=== PATIENT | female | born 1945 | race Caucasian/White ===

== ENCOUNTER → 2024-02-13 08:19 | Outpatient (REF) | payer MEDICARE, OTHER, SELFPAY ==
[2024-02-13 09:00] LABS: % Basophils 1.2 % (0-2); % Eosinophils 4.1 % (0-6); % Immature Granulocytes 0.2 % (0-0.5); % Lymphocytes 31.2 % (20.5-51.1); % Monocytes 10.9 % (1.7-9.3); % Neutrophils 52.4 % (42.2-75.2); Absolute Basophils 0.1 10^3/uL (0-0.2); Absolute Eosinophils 0.2 10^3/uL (0-0.7); Absolute Lymphocytes 1.3 10^3/uL (1.2-3.4); Absolute Monocytes 0.5 10^3/uL (0.1-0.6); Absolute Neutrophils 2.2 10^3/uL (1.4-6.5); Hematocrit 42.3 % (37.0-47.0); Hemoglobin 14.5 g/dL (12.0-16.0); Mean Corp Hgb Conc. 34.3 g/dL (33.0-37.0); Mean Corpuscular Hgb 31.4 pg (27.0-31.0); Mean Corpuscular Volume 91.6 fL (81.0-99.0); Nucleated Red Blood Cells % 0 %; Platelet Count 263 10^3/uL (130-400); Red Blood Cell Count 4.62 10^6/uL (4.20-5.40); Red Cell Dist. Width 12.4 % (11.5-14.5); White Blood Cell Count 4.1 10^3/uL (4.8-10.8)
[2024-02-13 09:49] LABS: Vitamin D, 25-OH*** 72.6 ng/mL (30-80)
[2024-02-13 11:03] LABS: ALT (SGPT) 12 U/L (0-35); AST (SGOT) 38 U/L (14-36); Albumin 4.4 g/dl (3.5-5.0); Alkaline Phosphatase 65 U/L (38-126); Blood Urea Nitrogen 15 mg/dl (7-17); Calcium 9.7 mg/dl (8.4-10.2); Carbon Dioxide 23 mmol/L (22-30); Chloride 107 mmol/L (98-107); Glucose 127 mg/dl (70-99); HDL Cholesterol 85 mg/dl; LDL Cholesterol, Calculated 141 mg/dl; Potassium 4.3 mmol/L (3.5-5.1); Sodium 142 mmol/L (135-145); Total Bilirubin 0.7 mg/dl (0.2-1.3); Total Cholesterol 238 mg/dl (50-199); Total Protein 7.1 g/dl (6.3-8.2); Triglyceride 61 mg/dl (10-149); Very Low Density Lipoprotein 12 mg/dl (0-30); eGFR > 60.00
[2024-02-13 12:15] LABS: Glycohemoglobin (HgbA1c) 5.9 % (4.0-5.6)
== END ==
LOC: REG 08:19
PROVIDERS: ATTENDING PHYSICIAN Family Medicine
DX: R73.01 Impaired fasting glucose (principal); Z13.220 Encounter for screening for lipoid disorders; E55.9 Vitamin D deficiency, unspecified; F51.01 Primary insomnia; G45.9 Transient cerebral ischemic attack, unspecified
CPT/HCPCS: 36415; 80053; 80061; 82306; 83036; 85025

== ENCOUNTER → 2024-11-21 07:37 | Outpatient (REF) | payer MEDICARE, OTHER, SELFPAY | LOC: RAD 07:37 | PROVIDERS: ATTENDING PHYSICIAN Nurse Practitioner Family | DX: R05.3 Chronic cough (principal); R07.89 Other chest pain | CPT/HCPCS: 71046; 93005 ==

== ENCOUNTER → 2025-03-09 08:20 | Outpatient (REF) | payer MEDICARE, OTHER, SELFPAY ==
[2025-03-09 09:02] LABS: Hematocrit 43.5 % (37.0-47.0); Hemoglobin 14.7 g/dL (12.0-16.0); Mean Corp Hgb Conc. 33.8 g/dL (33.0-37.0); Mean Corpuscular Volume 89.5 fL (81.0-99.0); Nucleated Red Blood Cells % 0 %; Platelet Count 275 10^3/uL (130-400); Red Cell Dist. Width 12.0 % (11.5-14.5)
[2025-03-09 09:45] LABS: ALT (SGPT) 15 U/L (0-35); AST (SGOT) 38 U/L (14-36); Albumin 4.5 g/dl (3.5-5.0); Alkaline Phosphatase 80 U/L (38-126); Blood Urea Nitrogen 13 mg/dl (7-17); Calcium 9.9 mg/dl (8.4-10.2); Carbon Dioxide 27 mmol/L (22-30); Chloride 108 mmol/L (98-107); Glucose 102 mg/dl (70-99); HDL Cholesterol 89 mg/dl; LDL Cholesterol, Calculated 105 mg/dl; Potassium 5.1 mmol/L (3.5-5.1); Sodium 143 mmol/L (135-145); Total Protein 7.4 g/dl (6.3-8.2); Very Low Density Lipoprotein 18 mg/dl (0-30); eGFR > 60.00
[2025-03-09 09:55] LABS: Glycohemoglobin (HgbA1c) 5.9 % (4.0-5.6)
[2025-03-09 10:19] LABS: Vitamin D, 25-OH*** 58.0 ng/mL (30-80)
[2025-03-09 10:23] LABS: TSH 1.52 uIU/ml (0.47-4.68)
== END ==
LOC: REG 08:20
PROVIDERS: ATTENDING PHYSICIAN Family Medicine
DX: I10 Essential (primary) hypertension (principal); Z86.73 Personal history of transient ischemic attack (TIA), and cerebral infarction without residual deficits; R73.03 Prediabetes; F41.9 Anxiety disorder, unspecified; M81.0 Age-related osteoporosis without current pathological fracture
CPT/HCPCS: 36415; 80053; 80061; 82306; 83036; 84443; 85025

== ENCOUNTER → 2025-04-07 08:33 | Outpatient (REF) | payer MEDICARE, OTHER, SELFPAY | LOC: RAD 08:33 | PROVIDERS: ATTENDING PHYSICIAN Family Medicine | DX: M81.0 Age-related osteoporosis without current pathological fracture (principal) | CPT/HCPCS: 77080 ==